=== PATIENT | female | born 1975 | race Caucasian/White ===

== ENCOUNTER 2017-01-27 11:45 | Observation (INO) ==
--- NOTE | 2017-01-27 12:23 | Emergency Department Note ---
Disposition Clinical Impression: Abnormal EKG, Chest pain, Left-sided weakness, Anxiety, Smoker, Abnormal urinalysis Disposition: Admitted As Inpatient Referrals: Rod Crawford DO [Primary Care Provider] - Forms: ED Satisfaction Letter General Adult HPI - General Chief complaint: ED Dizziness Stated complaint: Dizzy, confused (from [facility] office) Time Seen by Provider: 01/27/17 12:05 Source: patient Limitations: no limitations - History of Present Illness HPI Narrative: Weight 2-year-old female reports emergency department complaining of dizziness. She was sent in by her primary care physician. She reports she is dizzy all the time and nothing seems to make it worse. There is no history of syncope. She describes chest heaviness radiating to the left and the left neck. There is no history of headache neck stiffness or rash. No fevers reported. There is no history of abdominal pain vomiting or diarrhea. There is no history of acute back pain. The patient denies any previous history of DVT PE cancer or CAD. She is not diabetic hypertensive or hyperlipidemic. She describes some left-sided tingling and weakness in the left upper and left lower extremity which began 2 days ago. This has been intermittent. The patient has no history of diabetes hypertension hypercholesterolemia her previous CVA. The patient states she has been working a lot and has not had a day off since January 11. She denies anxiety or depression. There is no history of rash urinary symptoms or she states she has had a hysterectomy. She is not known to be anticoagulated. There is no history of leg swelling or pain or coughing up blood. Pain Scale: 4 - Related Data Home Medications Medication Instructions Recorded Confirmed Citalopram 09/27/16 Previous Rx's Medication Instructions Recorded DiphenhydraMINE [Benadryl] 25 mg PO Q6HR PRN #20 capsule 10/04/16 predniSONE [PredniSONE] See Taper PO DAILY #18 tablet 10/04/16 Ibuprofen [Motrin] 600 mg PO Q6HR PRN #40 tab 10/11/16 Oxycodone HCl/Acetaminophen 1 each PO Q4H PRN #30 tablet 10/11/16 [Percocet 5-325 mg Tablet] Allergies Allergy/AdvReac Type Severity Reaction Status Date / Time cinnamon Allergy Anaphylaxis Verified 01/27/17 11:51 codeine Allergy Itching Verified 01/27/17 11:51 All systems ED: reviewed and negative except as stated. Past Medical History - Past Medical History Medical history: Reports: non-contributory Psychiatric history: Reports: anxiety, depression, other INDUSTRIAL ECOLOGY TECHNICIAN history: Reports: no INDUSTRIAL ECOLOGY TECHNICIAN history - Social History Smoking Status: Current every day smoker Smokeless Tobacco Status: No Alcohol use: Reports: rarely Drug use: Reports: none Physical Exam - General Limitations: no limitations General appearance: alert, in no apparent distress - Head Head exam: atraumatic, normocephalic, normal inspection - Eye Eye exam: Present: normal appearance, PERRL, EOMI. Absent: scleral icterus, conjunctival injection - ENT ENT exam: normal exam, normal oropharynx, mucous membranes moist, TM's normal bilaterally, normal external ear exam - Neck Neck exam: Present: normal inspection, full ROM, trachea midline - Chest Chest inspection: Present: symmetric chest wall rise. Absent: tenderness - Respiratory Respiratory exam: Present: normal lung sounds bilaterally, respiratory distress , prolonged expiratory phase. Absent: wheezes, stridor, accessory muscle use - Cardiovascular Cardiovascular exam: Present: regular rate, normal rhythm, normal heart sounds - Abdominal Exam Abdominal exam: Present: soft, Non-Tender, hyperactive bowel sounds. Absent: tenderness, distention, guarding, rebound, rigidity, normal bowel sounds - Extremities Exam Extremities exam: Present: normal inspection, full ROM, normal capillary refill. Absent: tenderness, pedal edema, joint swelling, calf tenderness - Expanded Lower Extremity Exam Neurovascular/Tendon exam: Present: normal capillary refill. Absent: motor deficit, sensory deficit, tendon deficit, extremity cold to touch, pallor - Back Exam Back exam: Present: normal inspection, full ROM. Absent: tenderness, CVA tenderness (R), CVA tenderness (L), vertebral tenderness - Neurological Exam Neurological exam: Present: alert, oriented X3, CN II-XII intact. Absent: motor sensory deficit - Psychiatric Psychiatric exam: Present: normal affect, normal mood - Skin Skin exam: Present: warm, dry, intact, normal color. Absent: rash, cyanosis, diaphoresis, erythema, pallor, mottled Course Vital Signs Temperature 98.2 F 01/27/17 11:48 Pulse Rate 79 01/27/17 11:48 Respiratory Rate 20 01/27/17 11:48 Blood Pressure 131/82 01/27/17 11:48 O2 Sat by Pulse Oximetry 98 01/27/17 11:48 Temperature 98.2 F 01/27/17 11:48 Pulse Rate 73 01/27/17 13:29 Respiratory Rate 16 01/27/17 13:29 Blood Pressure 135/87 01/27/17 13:29 O2 Sat by Pulse Oximetry 100 01/27/17 13:29 Oxygen Delivery Oxygen Delivery Room Air Medical Decision Making - MDM Narrative Medical decision making narrative: The patient has been having recurrent chest pain and has been dizzy, she also describes some left upper left lower extremity weakness intermittently for 2 days. Aspirin was ordered and the ED. CTA head and neck were ordered negative. Testing is essentially negative apart from an abnormal urinalysis. The patient's EKG does not demonstrate acute ST elevations however slight abnormalities are noted/minor ST depressions laterally. The patient has no history of hypertension hyperlipidemia or diabetes mellitus but is a smoker. She has no previous history of coronary disease. The patient has been working a lot is been somewhat anxious. On review, she reports she never feels this dizzy, she does not usually have any chest pain or left upper lobar extremity weakness or numbness. She has no history of multiple sclerosis, there is no history of fever or neck stiffness no meningismus appreciated. Based on her symptomatology, I thought it would be appropriate to admit the patient for observation. She is highly agreeable. She does not feel comfortable going home. I discussed case with the hospitalist on-call who has accepted the patient to their care. - Lab Data Lab results reviewed: Yes I reviewed the patient's lab results. Result diagrams: 01/27/17 13:19 01/27/17 13:19 Lab Results 01/27/17 01/27/17 01/27/17 Range/Units 13:19 13:19 13:19 WBC 7.6 (4.3-11.1) K/mcL RBC 4.60 (3.82-4.97) M/mcL Hgb 13.3 (11.5-15.4) g/dL Hct 40.5 (35.3-44.9) % MCV 88.0 (83.0-100.0) fL MCH 28.9 (28.0-33.3) pg MCHC 32.8 (31.6-35.5) g/dL RDW 12.4 (11.5-14.5) % Plt Count 282 (140-400) K/mcL MPV 9.2 L (9.4-12.4) fL Immature Gran % 0.4 (0-4) % Seg Neutrophils % 60.8 % Lymphocytes % 31.6 % Monocytes % 4.8 % Eosinophils % 1.9 % Basophils % 0.5 % Neutrophils # 4.6 (1.6-8.9) K/mcL Lymphocytes # 2.4 (0.6-4.6) K/mcL Monocytes # 0.4 (0.0-1.3) K/mcL Eosinophils # 0.1 (0.0-0.6) K/mcL Basophils # 0.0 (0.0-0.2) K/mcL Sodium 140 (136-145) mEq/L Potassium 3.7 (3.5-4.5) mEq/L Chloride 105 (98-109) mEq/L Carbon Dioxide 26 (19-29) mEq/L BUN 9 (7-20) mg/dL Creatinine 0.71 (0.57-1.11) mg/dL Est GFR ( Amer) > 60 (> 60) Est GFR (Non-Af Amer) > 60 (> 60) BUN/Creatinine Ratio 13 (6-26) Glucose 84 (70-99) mg/dL Calculated Osmolality 288 (280-300) Calcium 9.5 (8.6-10.8) mg/dL Total Bilirubin (0.2-1.2) mg/dL Direct Bilirubin (0.0-0.5) mg/dL Indirect Bilirubin (0.0-1.2) mg/dL AST (5-34) Units/L ALT (0-55) Units/L Alkaline Phosphatase (38-126) Units/L Troponin I 0.01 (0-0.03) ng/mL C-Reactive Protein (Less than 5) mg/L Serum Total Protein (6.0-8.3) g/dL Albumin (3.5-5.0) g/dL Globulin (2.4-3.5) g/dL Albumin/Globulin Ratio (1.1-2.2) Urine Color (Yellow) Urine Clarity (Clear) Urine pH (5.0-8.0) pH Units Ur Specific [place] (1.010-1.025) Urine Protein (Neg-Trace) mg/dL Urine Glucose (UA) (Normal) mg/dL Urine Ketones (Negative) mg/dL Urine Blood (Negative) Urine Nitrite (Negative) Urine Bilirubin (Negative) Urine Urobilinogen (Normal) mg/dL Ur Leukocyte Esterase (Negative) Urine Microscopic WBC (0-3) per hpf Ur Squamous Epith Cells (None-Few) per lpf Urine Bacteria (None-Few) per hpf Hyaline Casts (None-Few) per lpf Ur Culture Indicated? (NO) Urine Opiates Screen (Hyxovh=568) ng/mL Ur Barbiturates Screen (Qddksy=640) ng/mL Ur Phencyclidine Scrn (Cutoff=25) ng/mL Ur Amphetamines Screen (Itmudb=5306) ng/mL U Benzodiazepines Scrn (Gxsqku=909) ng/mL Urine Cocaine Screen (Cutoff= 300) ng/mL U Marijuana (THC) Screen (Cutoff = 50) ng/mL 01/27/17 01/27/17 01/27/17 Range/Units 13:19 13:19 14:03 WBC (4.3-11.1) K/mcL RBC (3.82-4.97) M/mcL Hgb (11.5-15.4) g/dL Hct (35.3-44.9) % MCV (83.0-100.0) fL MCH (28.0-33.3) pg MCHC (31.6-35.5) g/dL RDW (11.5-14.5) % Plt Count (140-400) K/mcL MPV (9.4-12.4) fL Immature Gran % (0-4) % Seg Neutrophils % % Lymphocytes % % Monocytes % % Eosinophils % % Basophils % % Neutrophils # (1.6-8.9) K/mcL Lymphocytes # (0.6-4.6) K/mcL Monocytes # (0.0-1.3) K/mcL Eosinophils # (0.0-0.6) K/mcL Basophils # (0.0-0.2) K/mcL Sodium (136-145) mEq/L Potassium (3.5-4.5) mEq/L Chloride (98-109) mEq/L Carbon Dioxide (19-29) mEq/L BUN (7-20) mg/dL Creatinine (0.57-1.11) mg/dL Est GFR ( Amer) (> 60) Est GFR (Non-Af Amer) (> 60) BUN/Creatinine Ratio (6-26) Glucose (70-99) mg/dL Calculated Osmolality (280-300) Calcium (8.6-10.8) mg/dL Total Bilirubin 0.6 (0.2-1.2) mg/dL Direct Bilirubin 0.2 (0.0-0.5) mg/dL Indirect Bilirubin 0.4 (0.0-1.2) mg/dL AST 11 (5-34) Units/L ALT 9 (0-55) Units/L Alkaline Phosphatase 80 (38-126) Units/L Troponin I (0-0.03) ng/mL C-Reactive Protein 16 H (Less than 5) mg/L Serum Total Protein 7.1 (6.0-8.3) g/dL Albumin 3.9 (3.5-5.0) g/dL Globulin 3.2 (2.4-3.5) g/dL Albumin/Globulin Ratio 1.2 (1.1-2.2) Urine Color (Yellow) Urine Clarity (Clear) Urine pH (5.0-8.0) pH Units Ur Specific [place] (1.010-1.025) Urine Protein (Neg-Trace) mg/dL Urine Glucose (UA) (Normal) mg/dL Urine Ketones (Negative) mg/dL Urine Blood (Negative) Urine Nitrite (Negative) Urine Bilirubin (Negative) Urine Urobilinogen (Normal) mg/dL Ur Leukocyte Esterase (Negative) Urine Microscopic WBC (0-3) per hpf Ur Squamous Epith Cells (None-Few) per lpf Urine Bacteria (None-Few) per hpf Hyaline Casts (None-Few) per lpf Ur Culture Indicated? (NO) Urine Opiates Screen Negative (Jdhhuj=997) ng/mL Ur Barbiturates Screen Negative (Srxevd=587) ng/mL Ur Phencyclidine Scrn Negative (Cutoff=25) ng/mL Ur Amphetamines Screen Negative (Jktorh=3712) ng/mL U Benzodiazepines Scrn Negative (Eqqtfk=534) ng/mL Urine Cocaine Screen Negative (Cutoff= 300) ng/mL U Marijuana (THC) Screen Negative (Cutoff = 50) ng/mL 01/27/17 Range/Units 14:05 WBC (4.3-11.1) K/mcL RBC (3.82-4.97) M/mcL Hgb (11.5-15.4) g/dL Hct (35.3-44.9) % MCV (83.0-100.0) fL MCH (28.0-33.3) pg MCHC (31.6-35.5) g/dL RDW (11.5-14.5) % Plt Count (140-400) K/mcL MPV (9.4-12.4) fL Immature Gran % (0-4) % Seg Neutrophils % % Lymphocytes % % Monocytes % % Eosinophils % % Basophils % % Neutrophils # (1.6-8.9) K/mcL Lymphocytes # (0.6-4.6) K/mcL Monocytes # (0.0-1.3) K/mcL Eosinophils # (0.0-0.6) K/mcL Basophils # (0.0-0.2) K/mcL Sodium (136-145) mEq/L Potassium (3.5-4.5) mEq/L Chloride (98-109) mEq/L Carbon Dioxide (19-29) mEq/L BUN (7-20) mg/dL Creatinine (0.57-1.11) mg/dL Est GFR ( Amer) (> 60) Est GFR (Non-Af Amer) (> 60) BUN/Creatinine Ratio (6-26) Glucose (70-99) mg/dL Calculated Osmolality (280-300) Calcium (8.6-10.8) mg/dL Total Bilirubin (0.2-1.2) mg/dL Direct Bilirubin (0.0-0.5) mg/dL Indirect Bilirubin (0.0-1.2) mg/dL AST (5-34) Units/L ALT (0-55) Units/L Alkaline Phosphatase (38-126) Units/L Troponin I (0-0.03) ng/mL C-Reactive Protein (Less than 5) mg/L Serum Total Protein (6.0-8.3) g/dL Albumin (3.5-5.0) g/dL Globulin (2.4-3.5) g/dL Albumin/Globulin Ratio (1.1-2.2) Urine Color Yellow (Yellow) Urine Clarity Clear (Clear) Urine pH 6.0 (5.0-8.0) pH Units Ur Specific [place] 1.014 (1.010-1.025) Urine Protein Negative (Neg-Trace) mg/dL Urine Glucose (UA) Normal (Normal) mg/dL Urine Ketones Negative (Negative) mg/dL Urine Blood Negative (Negative) Urine Nitrite Negative (Negative) Urine Bilirubin Negative (Negative) Urine Urobilinogen Normal (Normal) mg/dL Ur Leukocyte Esterase Trace H (Negative) Urine Microscopic WBC 5-15 H (0-3) per hpf Ur Squamous Epith Cells Many H (None-Few) per lpf Urine Bacteria Few (None-Few) per hpf Hyaline Casts None Seen (None-Few) per lpf Ur Culture Indicated? YES A (NO) Urine Opiates Screen (Oxuhuy=901) ng/mL Ur Barbiturates Screen (Kfbioc=170) ng/mL Ur Phencyclidine Scrn (Cutoff=25) ng/mL Ur Amphetamines Screen (Pzgxpv=2114) ng/mL U Benzodiazepines Scrn (Aahrcn=872) ng/mL Urine Cocaine Screen (Cutoff= 300) ng/mL U Marijuana (THC) Screen (Cutoff = 50) ng/mL - Radiology Data Radiology results reviewed: Yes I reviewed the patient's radiology results.
[2017-01-27] MEDS: 0.9 % Sodium Chloride 1,000 ML IVC SCH (13:27)
[2017-01-27 13:33] LABS: Basophils % 0.5 %; Eosinophils # 0.1 K/mcL (0.0-0.6); Eosinophils % 1.9 %; Hematocrit 40.5 % (35.3-44.9); Hemoglobin 13.3 g/dL (11.5-15.4); Immature Granulocytes % 0.4 % (0-4); Lymphocytes # 2.4 K/mcL (0.6-4.6); Lymphocytes % 31.6 %; Mean Corpuscular HGB Conc 32.8 g/dL (31.6-35.5); Mean Corpuscular Hemoglobin 28.9 pg (28.0-33.3); Mean Platelet Volume 9.2 fL (9.4-12.4); Monocytes # 0.4 K/mcL (0.0-1.3); Monocytes % 4.8 %; Neutrophils # 4.6 K/mcL (1.6-8.9); Platelet Count 282 K/mcL (140-400); Red Cell Distribution Width 12.4 % (11.5-14.5); Segmented Neutrophils % 60.8 %
[2017-01-27 13:47] LABS: BUN/Creatinine Ratio 13 (6-26); Blood Urea Nitrogen 9 mg/dL (7-20); Calcium 9.5 mg/dL (8.6-10.8); Carbon Dioxide 26 mEq/L (19-29); Chloride 105 mEq/L (98-109); Glucose 84 mg/dL (70-99); Osmolality,Calculated 288 (280-300); Potassium 3.7 mEq/L (3.5-4.5); Sodium 140 mEq/L (136-145); eGFR For African Americans > 60 (> 60); eGFR For Non-African Americans > 60 (> 60)
[2017-01-27 13:48] LABS: Albumin 3.9 g/dL (3.5-5.0); Albumin/Globulin Ratio 1.2 (1.1-2.2); Bilirubin,Direct 0.2 mg/dL (0.0-0.5); Bilirubin,Indirect 0.4 mg/dL (0.0-1.2); Bilirubin,Total 0.6 mg/dL (0.2-1.2); Globulin 3.2 g/dL (2.4-3.5); Total Protein 7.1 g/dL (6.0-8.3)
[2017-01-27 14:10] LABS: Bilirubin,Urine Negative (Negative); Blood,Urine Negative (Negative); Color,Urine Yellow (Yellow); Glucose,Urine (UA) Normal (Normal); Ketones,Urine Negative (Negative); Leukocyte Esterase,Urine Trace (Negative); Nitrite,Urine Negative (Negative); Protein,Urine Negative (Neg-Trace); Specific Gravity,Urine 1.014 (1.010-1.025); Urobilinogen,Urine Normal (Normal)
[2017-01-27 14:11] LABS: Bacteria,Urine Few per hpf (None-Few); Hyaline Casts,Urine None Seen per lpf (None-Few); Squamous Epithelial Cell,Urine Many per lpf (None-Few)
[2017-01-27 14:13] LABS: Clarity,Urine Clear (Clear)
[2017-01-27 14:16] LABS: Amphetamine Screen,Urine Negative ng/mL (Cutoff=1000); Barbiturate Screen,Urine Negative ng/mL (Cutoff=200); Benzodiazepines Screen,Urine Negative ng/mL (Cutoff=200); Cannabinoid Screen,Urine Negative ng/mL (Cutoff = 50); Cocaine Screen,Urine Negative ng/mL (Cutoff= 300); Opiate Screen,Urine Negative ng/mL (Cutoff=300); Phencyclidine Screen,Urine Negative ng/mL (Cutoff=25)
[2017-01-27] MEDS ORDERED: Aspirin 325 MG TABLET PO ONE (17:14)
[2017-01-27] MEDS ORDERED: Naloxone 0.4 MG/ML INJ IVP PRN (19:36)
--- NOTE | 2017-01-27 20:47 | Internal Med History&Physical ---
<Kamran Stanley J - Last Filed: 01/27/17 21:57> Date of Encounter: 01/27/17 Time of Encounter: 20:36 Assessment and Plan (1) Chest pressure Current visit: Yes Status: Acute Chest pressure and heaviness with radiation to left arm and neck which began this morning without N/V, diaphoresis, or dyspnea. Workup in ED unremarkable. Does not appear to have cardiac cause, will continue to workup to thoroughly rule out, low-risk for RI, and no family h/o cardiac disease. Trend troponins Echo tomorrow Continuous telemetry (2) Dizziness Current visit: Yes Status: Acute Presents with intermittent dizziness for the last 2-days with intermittent h/a. No focal neuro deficits noted upon exam. Denies any syncopal events. Will rule out inner ear, neuro, and cardiac pathology. Carotid doppler Echocardiogram TSH Serum B12 Meclizine 12.5mg TID for dizziness (3) DVT prophylaxis Current visit: Yes Status: Acute At risk for DVT d/t prolonged immobility secondary to hospital stay. Start lovenox 40mg SC daily. Internal Medicine - H&P: HPI Chief complaint: Chest heaviness, dizziness, h/a Admitted From: Home Plans for Post Hospital Care: Home History of present illness: Ms. Cook is a 42 year old female with a PMH of anxiety, depression, and migraines, presents with complaints of dizziness and chest pressure for the last two days. Reports she is dizzy all of the time for the last few weeks, additionally,she is concerned for chest heaviness radiating to the left arm and left neck. She describes some intermittent left-sided tingling and weakness in the left upper and lower extremity which began 2 days ago as well. She denies activity making chest pain worse, denies an SOB, no syncope, edema/swelling or N /V. Chest x-ray no acute pulmonary process, CTA head and neck unremarkable, UA shows trace leuks but was likely contaminated, CBC and metabolic panel unremarkable, troponin negative. Being admitted for further monitoring and evaluation. Past Med Surg Social Fam HX - Past Medical History Medical history: non-contributory Psychiatric history: anxiety, depression, other - Past Surgical History Surgical History: appendectomy, hysterectomy - Social History Smoking Status: Current every day smoker Packs per day: 0.10 Smokeless Tobacco Status: No Alcohol use: rarely Drug use: none - Family History Father Adopted: [place]: CARLOS Age: 51 Family Member Ethnicity: Non- Living Status: Still Living Hx Family Cardiac Disorders: Yes (HTN) Hx Family Respiratory Disorders: No Hx Family Cancer: Yes (COLON) Hx Family GI Disorders: No Hx Family Genitourinary Disorders: No Hx Family Endocrine Disorder: No Hx Family Musculoskeletal Disorders: No Hx Family Neuromuscular Disorders: No Hx Family Neurologic Disorders: No Hx Family HEENT Disorders: No Hx Family Autoimmune Disorders: No Hx Family Reproductive Disorders: No Hx Family Psychosocial Disorders: No Hx Family Medical Disorders: No Internal Medicine - H&P: Meds Citalopram Hydrobromide [Citalopram HBr] 40 mg PO QPM 01/27/17 [History] Estradiol [Estrace] 1 mg PO DAILY 01/27/17 [History] 3 Allergy/AdvReac Type Severity Reaction Status Date / Time cinnamon Allergy Anaphylaxis Verified 01/27/17 11:51 codeine Allergy Itching Verified 01/27/17 11:51 All Systems PM: A 10-system review of systems was performed and is negative for pertinent findings except as documented above in the HPI. - Constitutional Constitutional: no chills, no excessive sweating, no fatigue, no fever(s), no malaise, no night sweats, no weakness - EENT Eyes: no blurry vision, no change in vision, no discharge, no loss of peripheral vision, no loss of vision, no pain, no photophobia, no spots in vision Ears: no ear discharge, no ear pain, no tinnitus Nose, mouth and throat: no dysphagia, no nasal discharge, no neck pain, no sore throat - Cardiovascular Cardiovascular ROS IM: lightheadedness, no chest pain, no diaphoresis, no dyspnea, no dyspnea on exertion, no edema, no irregular heart rhythm, no palpitations, no syncope - Respiratory Respiratory: no cough, no dyspnea, no wheezing, no excessive phlegm production - Gastrointestinal Gastrointestinal: no abdominal pain, no diarrhea, no hematemesis, no hematochezia, no melena, no nausea, no vomiting - Genitourinary Genitourinary: no change in urinary stream, no dysuria, no flank pain, no hematuria - Musculoskeletal Musculoskeletal ROS IM: no numbness, no tingling - Integumentary Integumentary IM: no rash, no unusual bruising - Neurological Neurological ROS: numbness (Intermittent LUE, LLE), tingling, no confusion, no convulsions, no focal weakness, no tremor(s) - Hematologic/Lymphatic Hematologic/Lymphatic: no easy bruising - Constitutional Vitals: Temp Pulse Resp BP Pulse Ox 98.1 F 75 16 125/74 99 01/27/17 18:33 01/27/17 18:39 01/27/17 18:33 01/27/17 18:39 01/27/17 18:33 General appearance: Present: cooperative, A&O X 3, no acute distress, answers questions appropriately - Head Head exam: Present: atraumatic, normocephalic - Eye Eye exam: Present: EOMI, PERRL, conjuntiva pink, sclera anicteric. Absent: nystagmus Pupils: Present: PERRL - Neck Neck exam general surgery: Present: supple, trachea midline. Absent: lymphadenopathy - Respiratory Respiratory exam: Present: CTAB. Absent: accessory muscle use, rales, rhonchi, wheezes - Cardiovascular Cardiovascular exam: Present: RRR, +S1, +S2. Absent: diastolic murmur, gallop, JVD, rubs, systolic murmur, tachycardia - GI/Abdominal GI/Abdominal exam: Present: normal bowel sounds, soft, no peritoneal signs. Absent: distended, tenderness - Extremities Exam Extremities exam: Present: normal capillary refill, normal inspection, warm, radial pulses palpable and symmetrical. Absent: calf tenderness, cyanotic, joint swelling, pedal edema, tenderness - Neurological Exam Neurological exam: Present: alert, CN II-XII intact, oriented X3, no focal deficits, strengths equal and symetr throughout. Absent: pronater drift, facial droop, speech deficit - Psychiatric Psychiatric exam: Present: normal affect, normal mood - Skin Skin exam: Present: dry, intact Internal Med - H&P Results - Labs CBC & Chem 7: 01/27/17 13:19 01/27/17 13:19 - EKG Data Prior EKG available for review: yes When compared to previous EKG: there is no significant change - Diagnostic Studies CT scan - head Status: image reviewed by me Additional comments: CTA of head and neck reveals no acute vascular abnormalities, no neck mass or acute ischemia noted. Chest x-ray Status: image reviewed by me Additional comments: Chest x-ray negative for acute pulmonary process <Aurelia Pascual - Last Filed: 01/28/17 01:39> Date of Encounter: 01/27/17 Time of Encounter: 21:20 Internal Medicine - H&P: HPI History of present illness: Ms. Cook is a 42 year old female All Systems PM: A 10-system review of systems was performed and is negative for pertinent findings except as documented above in the HPI. - Constitutional Vitals: Temp Pulse Resp BP Pulse Ox 98.1 F 77 16 93/60 98 01/27/17 23:03 01/27/17 23:03 01/27/17 23:03 01/27/17 23:03 01/27/17 23:03 Internal Med - H&P Results - Labs CBC & Chem 7: 01/27/17 13:19 01/27/17 13:19 Labs: Cardiac Enzymes 01/27/17 Range/Units 20:18 Troponin I 0.00 (0-0.03) ng/mL - Attending Attestation I have independently seen and examined the patient. Patient reports of persistent dizziness which prompted her visit to the ER. She states the dizziness has been intermittent occurring at rest and has no association with any movement. She also reports of being extremely stressed with work, and having pressure like chest pain earlier today. No cardiac history in patient or family reported. Will admit to further evaluate causes of dizziness and monitor serial TNI and obtain 2D echo to r/o any cardiac etiology. Patient has been chest pain free since her hospitalization. Case was discussed with TAE Stanley, I agree with his documented findings, assessment, and plan.
[2017-01-28 02:21] LABS: Basophils # 0.1 K/mcL (0.0-0.2); Basophils % 0.6 %; Eosinophils # 0.3 K/mcL (0.0-0.6); Eosinophils % 3.2 %; Hemoglobin 11.8 g/dL (11.5-15.4); Immature Granulocytes % 0.7 % (0-4); Immature Platelets 1.7 % (1.1-6.1); Lymphocytes # 3.2 K/mcL (0.6-4.6); Lymphocytes % 38.9 %; Mean Corpuscular HGB Conc 33.7 g/dL (31.6-35.5); Mean Corpuscular Hemoglobin 29.4 pg (28.0-33.3); Mean Corpuscular Volume 87.3 fL (83.0-100.0); Mean Platelet Volume 9.5 fL (9.4-12.4); Monocytes # 0.4 K/mcL (0.0-1.3); Monocytes % 5.3 %; Neutrophils # 4.2 K/mcL (1.6-8.9); Platelet Count 247 K/mcL (140-400); Red Blood Count 4.01 M/mcL (3.82-4.97); Red Cell Distribution Width 12.6 % (11.5-14.5); Segmented Neutrophils % 51.3 %
[2017-01-28 02:41] LABS: BUN/Creatinine Ratio 13 (6-26); Blood Urea Nitrogen 9 mg/dL (7-20); Calcium 8.2 mg/dL (8.6-10.8); Carbon Dioxide 20 mEq/L (19-29); Chloride 109 mEq/L (98-109); Glucose 88 mg/dL (70-99); Osmolality,Calculated 284 (280-300); Sodium 138 mEq/L (136-145); eGFR For African Americans > 60 (> 60); eGFR For Non-African Americans > 60 (> 60)
[2017-01-28 02:42] LABS: Potassium 4.2 mEq/L (3.5-4.5)
[2017-01-28] MEDS: 0.9 % Sodium Chloride 1,000 ML IVC SCH ×4 (03:48→20:00)
[2017-01-28] MEDS: *HR* Enoxaparin 40 MG/0.4 ML SYRINGE SQ SCH (06:13)
[2017-01-28] MEDS: Ibuprofen 400 MG TABLET PO PRN (08:05)
--- NOTE | 2017-01-28 14:02 | Electrocardiograph Report ---
[facility] Test Date: 2017-01-27 Pat Name: Mireya Cook Department: 103 Room: 3B46 Gender: F Air Drier: : 1975 Requested By: Kishore Braun Order Number: [id number] Reading MD: Alphonse Tyson MD Measurements Intervals [place] Rate: 70 P: 51 [place]: 207 QRS: 39 QRSD: 89 T: 11 QT: 401 QTc: 422 Interpretive Statements SINUS RHYTHM MINIMAL ST DEPRESSION [0.025+ mV ST DEPRESSION] Electronically Signed On 01-28-2017 14:00:38 EDT by Alphonse Tyson MD
--- NOTE | 2017-01-28 15:38 | Internal Med Progress Note ---
Date of Encounter: 01/28/17 Time of Encounter: 15:33 - Assessment and plan (1) Chest pain Current Visit: Yes Status: Acute Assessment and plan: presented with chest pressure, heaviness with radiation to left arm and neck that began this morning of presentation without N/V, diaphoresis, or dyspnea. Workup in ED unremarkable. Serial troponins negative, EKG without acute ST changes. Do not suspect true ACS, low-risk for [place], and no family h/o cardiac disease. Possibly anxiety related. Echo pending. Continue ASA for now. Qualifiers: Chest pain type: unspecified Qualified Code(s): R07.9 - Chest pain, unspecified (2) Dizziness Current Visit: Yes Status: Acute Assessment and plan: With associated paresthesia to left arm and face started morning of presentation. Head and neck CTA nonacute. Still with symptoms on 01/08 to exam. Brain MRI, bilateral carotid Dopplers pending. (3) Anxiety Current Visit: Yes Status: Acute Assessment and plan: per hx. reports increase home/work stressors and suspect anxiety is contributing to chest pain/pressure and paresthesia of left arm. Continue home Celexa. (4) DVT prophylaxis Current Visit: Yes Status: Acute Assessment and plan: Ambulation - Subjective Interval history: Seen and examined at bedside. Patient is due to me, information obtained from chart review and patient report. Patient says she is tired but feels overall better on exam. Still with some intermittent left arm numbness/tingling. Still has intermittent dizziness when laying down. No chest pain no shortness of breath. - Constitutional Vitals: Temp Pulse Resp BP Pulse Ox 98.9 F 77 16 110/73 99 01/28/17 15:10 01/28/17 15:10 01/28/17 15:10 01/28/17 15:10 01/28/17 15:10 General appearance: Present: cooperative, A&O X 3, no acute distress, answers questions appropriately - Head Head exam: Present: atraumatic, normocephalic - Eye Eye exam: Present: PERRL, conjuntiva pink, sclera anicteric Pupils: Present: PERRL - Neck Neck exam general surgery: Present: supple, trachea midline. Absent: lymphadenopathy - Respiratory Respiratory exam: Present: CTAB. Absent: accessory muscle use, rales, rhonchi, wheezes - Cardiovascular Cardiovascular exam: Present: RRR, +S1, +S2. Absent: diastolic murmur, gallop, rubs, systolic murmur - GI/Abdominal GI/Abdominal exam: Present: normal bowel sounds, soft, no peritoneal signs. Absent: distended, tenderness - Extremities Exam Extremities exam: Present: warm, radial pulses palpable and symmetrical. Absent : calf tenderness, cyanotic, pedal edema - Neurological Exam Neurological exam: Present: CN II-XII intact, oriented X3, no focal deficits. Absent: pronater drift, facial droop, speech deficit - Skin Skin exam: Present: dry, intact Internal Medicine: Result - Labs CBC & Chem 7: 01/28/17 02:12 01/28/17 02:12 Labs: Short CBC 01/28/17 Range/Units 02:12 WBC 8.2 (4.3-11.1) K/mcL Hgb 11.8 D (11.5-15.4) g/dL Hct 35.0 L (35.3-44.9) % Plt Count 247 (140-400) K/mcL Neutrophils # 4.2 (1.6-8.9) K/mcL BMP 01/28/17 02:12 Sodium 138 Potassium 4.2 Chloride 109 Carbon Dioxide 20 BUN 9 Creatinine 0.70 Glucose 88 Calcium 8.2 L Cardiac Enzymes 01/27/17 01/28/17 01/28/17 Range/Units 20:18 02:12 07:56 Troponin I 0.00 0.01 0.00 (0-0.03) ng/mL - Impressions Impressions Brain MRI 01/28/17 11:39 IMPRESSION: No acute infarct. D/ / Waldemar John MD / Waldemar John MD Interpreting Provider: Waldemar John MD Consult Discharge Plan - Plan Referrals: Rod Crawford DO [Primary Care Provider] -
[2017-01-29] MEDS: 0.9 % Sodium Chloride 1,000 ML IVC SCH (03:42)
[2017-01-29 04:15] LABS: Hematocrit 35.3 % (35.3-44.9); Hemoglobin 11.7 g/dL (11.5-15.4); Immature Platelets 1.6 % (1.1-6.1); Mean Corpuscular HGB Conc 33.1 g/dL (31.6-35.5); Mean Corpuscular Hemoglobin 29.3 pg (28.0-33.3); Mean Corpuscular Volume 88.3 fL (83.0-100.0); Mean Platelet Volume 9.5 fL (9.4-12.4); Red Cell Distribution Width 12.7 % (11.5-14.5)
[2017-01-29 04:32] LABS: Alanine Aminotransferase 8 Units/L (0-55); Albumin/Globulin Ratio 1.1 (1.1-2.2); Alkaline Phosphatase 69 Units/L (38-126); Aspartate Amino Transferase 12 Units/L (5-34); BUN/Creatinine Ratio 18 (6-26); Bilirubin,Total 0.6 mg/dL (0.2-1.2); Blood Urea Nitrogen 12 mg/dL (7-20); Calcium 8.5 mg/dL (8.6-10.8); Carbon Dioxide 22 mEq/L (19-29); Chloride 108 mEq/L (98-109); Globulin 2.9 g/dL (2.4-3.5); Glucose 90 mg/dL (70-99); Osmolality,Calculated 285 (280-300); Potassium 3.7 mEq/L (3.5-4.5); Sodium 138 mEq/L (136-145); eGFR For African Americans > 60 (> 60); eGFR For Non-African Americans > 60 (> 60)
[2017-01-29 04:34] LABS: Albumin 3.1 g/dL (3.5-5.0)
[2017-01-29] MEDS: *HR* Enoxaparin 40 MG/0.4 ML SYRINGE SQ SCH (05:59)
[2017-01-29] MEDS: Ibuprofen 400 MG TABLET PO PRN (14:28)
[2017-01-29 15:43] VITALS: BP 107/67
--- NOTE | 2017-01-29 15:50 | Discharge Summary ---
Date of Encounter: 01/29/17 Time of Encounter: 15:48 - Discharge Diagnosis (1) Chest pain Priority: Primary Status: Acute Comments: presented with chest pressure, heaviness with radiation to left arm and neck that began morning of presentation. No N/V, diaphoresis, or dyspnea. ASA given on arrival. Workup in ED unremarkable. Serial troponins negative, EKG without acute ST changes. TTE with EF 60%, no evidence of systolic, diastolic dysfunction. Suspect anxiety related as patient reports increased work/home stressors. Can follow up with PCP outpatient. No further cardiac workup needed Qualifiers: Chest pain type: unspecified Qualified Code(s): R07.9 - Chest pain, unspecified (2) Dizziness Priority: Primary Status: Acute Comments: With associated paresthesia to left arm and face. Head and neck CTA non-acute., no evidence of stenosis. Brain MRI negative. Ortho BPs negative. No arrhythmia noted on telemetry. Etiology unknown, possibly stress related as well. Advised patient to take Meclizine TID until seen by PCP. Recommend vitamin B12/folate level with PCP. Continue meclizine at discharge. (3) Anxiety Priority: Primary Status: Acute Comments: per hx. reports increase home/work stressors and suspect anxiety is contributing to chest pain/pressure and paresthesia of left arm. Continue home Celexa. - Discharge Medications Prescriptions: Meclizine [Antivert] 12.5 mg PO TID PRN #90 tablet PRN Reason: Dizziness Home Medications: Citalopram Hydrobromide [Citalopram HBr] 40 mg PO QPM 01/27/17 [History] Estradiol [Estrace] 1 mg PO DAILY 01/27/17 [History] Meclizine [Antivert] 12.5 mg PO TID PRN #90 tablet 01/29/17 [Rx] Allergies/Adverse Reactions: 3 Allergy/AdvReac Type Severity Reaction Status Date / Time cinnamon Allergy Anaphylaxis Verified 01/27/17 11:51 codeine Allergy Itching Verified 01/27/17 11:51 Procedures/tests Complete & Pending: Procedures Performed prior 72 hours Category Date Time Status MR head/brain wo con [MR] Routine MRI 01/28/17 11:39 Completed EV carotid duplex imaging BI Routine Y 01/28/17 21:23 Completed EV echocardiogram Routine Y 01/28/17 21:23 Completed Date of admission: 01/27/17 18:04 Primary care physician: Rod Crawford DO Discharging clinician: Solange Desouza Anticipated date of discharge: 01/29/17 - Patient Status Disposition: Home, Self-Care Condition: Good Functional capacity at discharge: independent ambulation Overall status at discharge: patient is progressing back to baseline - Discharge Instructions Follow Up With: Rod Crawford DO [Primary Care Provider] - - Diet and Activity Activity: increase activity as tolerated Diet: advance to your usual diet Interval History: Seen and examined at bedside. Says she feels better overall but still has intermittent episodes of dizziness with associated numbness to face. Episodes occur when she is laying or sitting down or standing up. She does not want to stay for further workup. Strongly advised her to follow-up with PCP and continue taking meclizine in the meantime. Says she feels better on my exam, specifically denies lightheadedness, dizziness, no chest pain no shortness of breath no abdominal pain and nausea vomiting or diarrhea Hospital course: See assessment and plan for hospital course - Time Spent with Patient Total time spent providing and/or coordinating discharge services: Greater than 30 minutes (36 minutes spent on discharge) - Constitutional Vitals: Temp Pulse Resp BP Pulse Ox 98.1 F 83 15 107/67 97 01/29/17 15:43 01/29/17 15:43 01/29/17 15:43 01/29/17 15:43 01/29/17 15:43 General appearance: Present: cooperative, A&O X 3, no acute distress, answers questions appropriately - Head Head exam: Present: atraumatic, normocephalic - Eye Eye exam: Present: PERRL, conjuntiva pink, sclera anicteric Pupils: Present: PERRL - Neck Neck exam general surgery: Present: supple, trachea midline. Absent: lymphadenopathy - Respiratory Respiratory exam: Present: CTAB. Absent: accessory muscle use, rales, rhonchi, wheezes - Cardiovascular Cardiovascular exam: Present: RRR, +S1, +S2. Absent: diastolic murmur, gallop, rubs, systolic murmur - GI/Abdominal GI/Abdominal exam: Present: normal bowel sounds, soft, no peritoneal signs. Absent: distended, tenderness - Extremities Exam Extremities exam: Present: warm, radial pulses palpable and symmetrical. Absent : calf tenderness, cyanotic, pedal edema - Neurological Exam Neurological exam: Present: CN II-XII intact, oriented X3, no focal deficits. Absent: pronater drift, facial droop, speech deficit - Skin Skin exam: Present: dry, intact
--- NOTE | 2017-01-31 08:28 | Carotid Imaging Report ---
Carotid Duplex Patient Name:Mireya Cook Order Number:[id number] Procedure Date:01/28/2017 Date:1975Age:42 yrs Gender:Female Lt BP:110 / 73 mmHg Rt.BP:110 / 73 mmHgHeart Rate: Location:[facility] Room #: 46 Forms Designer:Yasemin Cruz RDCS Referring MD:Kamran Stanley CNP fur remodeler:None Reading MD:Monroe Elizondo MD Primary Indications:New dizziness, chest pressure Risk Factors Yes/No Smoking Current Impressions: Findings: Bilateral mid ICA has a severe, 60-79% stenosis. Recommendations: Risk Factor Modification, Medical Therapy, and Follow up exam 12 months. Findings Carotid Duplex: Right: There is 60-79% stenosis in the right distal internal carotid artery. There is smooth homogeneous plaque. Left: There is 40-59% stenosis in the left proximal internal carotid artery. There is smooth homogeneous plaque. There is 60-79% stenosis in the left mid internal carotid artery. There is smooth homogeneous plaque. There is 40-59% stenosis in the left distal internal carotid artery. There is smooth homogeneous plaque. Prior Study: No prior study available for comparison. Carotid Results Right PSV EDV Assessment Proximal CCA 138 35 Normal Mid CCA 112 31 Normal Distal CCA 79 28 Normal Bifurcation 81 31 Normal Proximal ICA 95 33 Normal Mid ICA 107 51 Normal Distal ICA 217 92 60-79% stenosis ECA 135 22 Normal Vertebral Artery 70 30 Antegrade Flow Left PSV EDV Assessment Proximal CCA 143 47 Normal Mid CCA 134 42 Normal Distal CCA 106 42 Normal Bifurcation 112 43 Normal Proximal ICA 115 50 40-59% stenosis Mid ICA 158 61 60-79% stenosis Distal ICA 120 56 40-59% stenosis ECA 134 23 Normal Vertebral Artery 66 29 Antegrade Flow Ratio's Right ICA/CCA Ratio: 1.94 ICA/CCA Values: 217/112 Left ICA/CCA Ratio: 1.18 ICA/CCA Values: 158/134 Updated by Monroe Elizondo MD on 01/29/2017 4:13:05 PM electronically signed on 01/29/2017 4:13:20 PM with status of Final
== END 2017-01-29 16:51 | disposition home or self-care (01) ==
LOC: EMEROO 11:45 → 3BNU 11:45
PROVIDERS: ADMIT Family Medicine; ATTEND Registered Nurse